=== PATIENT | male | born 1990 | race Caucasian/White ===

== ENCOUNTER 2016-12-23 00:01 | Emergency (ER) | payer SELFPAY ==
[2016-12-23] MEDS ORDERED: Ondansetron 4 MG/2 ML SDV IVPUSH ONE (00:27)
[2016-12-23] MEDS ORDERED: Sodium Chloride 0.9% 1,000 ML IV ONE (00:27)
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
[2016-12-23] MEDS ORDERED: Acetaminophen 500 MG Tab PO ONE (00:50)
[2016-12-23 01:09] LABS: CHLORIDE,CL 103 mmol/L (98-110); SODIUM,NA 137 mmol/L (136-146)
[2016-12-23] MEDS ORDERED: Ondansetron 4 MG Tab.DIS PO ONE (02:23)
[2016-12-23 11:12] VITALS: BP 126/68
== END 2016-12-23 02:30 | disposition home or self-care (01) ==
LOC: MW.ED 00:01
DX: B34.9 Viral infection, unspecified (principal); I10 Essential (primary) hypertension; F41.9 Anxiety disorder, unspecified; F32.9 Major depressive disorder, single episode, unspecified
CPT/HCPCS: 80053; 85025; 96361; 96374; 99284; A9270; J2405; J7040; 99283